=== PATIENT | female | born 1930 | race Caucasian/White ===

== ENCOUNTER 2016-09-30 11:35 | Emergency (ER) | payer MEDICARE ==
[~2016-09-30] VITALS: Ht 167.6 cm; Wt 37.2 kg
[~2016-09-30 11:35] MED LIST: ULTR50TA PO; ZITH250T PO
[2016-09-30 11:40] VITALS: BP 118/60; PULSE 100; RESP 16; TEMP 95; O2SAT 93
[2016-09-30] MEDS ORDERED: LIDOCAINE HCL 1% 50 ML VIAL INFIL ONE (12:30)
--- NOTE | 2016-09-30 12:54 | PD ---
HPI Chief Complaint: Musculoskeletal Complaint Time Seen by Provider: 12:15 Travel History International Travel<30 days: No Contact w/Intl Traveler<30days: No Traveled to known affect area: No History of Present Illness HPI Send 85-year-old woman who presents to the emergency department complaining of left third finger pain and deformity after fall. She also has some skin tears on the left arm. Unclear she had LOC or head her head. History Past Medical History Narrative Medical Dementia Endometrial CA CAD Hyperlipidemia GERD Hiatal hernia Hypertension LMP: [place] Social History Alcohol Use: No Tobacco Use: No Allergies-Medications (Allergen,Severity, Reaction): Coded Allergies: Morphine (Verified Allergy, Mild, DECREASED BLOODPRESSURE, 11/10/15) PT DENIES ANY ALLERGIES Reported Meds & Prescriptions Reported Meds & Active Scripts Active Zithromax Z-Ronni (Azithromycin) 250 Mg Tab 250 Mg PO DIRECTED 500 MG (2 TABLETS) PO ON DAY 1, THEN 250 MG (1 TABLET) PO ON DAYS 2 TO 5. Ultram (Tramadol HCl) 50 Mg Tab 50 Mg PO Q4H PRN Review of Systems Except as stated in HPI: all other systems reviewed are Neg Physical Exam Narrative GENERAL: Well-appearing 84 year-old woman, no acute distress. SKIN: Warm and dry. NECK: Trachea midline. No JVD. CARDIOVASCULAR: Regular rate and rhythm. No murmur appreciated. RESPIRATORY: No accessory muscle use. Clear to auscultation. Breath sounds equal bilaterally. GASTROINTESTINAL: Abdomen soft, non-tender, nondistended. Hepatic and splenic margins not palpable. MUSCULOSKELETAL: Obvious deformity with near 90 angulation laterally of the third finger on the left hand at the PIP joint. There is edema and swelling at the same area. The hands are mottled and pale bilaterally. There is some skin tenting on the AP joint laterally for the dislocation is. She also has multiple skin tears around the left elbow. NEUROLOGICAL: Awake and alert. No obvious cranial nerve deficits. Motor grossly within normal limits. Normal speech. PSYCHIATRIC: Appropriate mood and affect; insight and judgment normal. Data Data Last Documented VS Vital Signs Date Time Temp Pulse Resp B/P Pulse Ox O2 Delivery O2 Flow Rate FiO2 09/30/16 11:40 95.0 100 16 118/60 93 Orders Hand, Complete ([id number]) (09/30/16 ) Lidocaine 1% Inj (50 Ml) (Xylocaine 1% I (09/30/16 12:30) Finger ([id number]) (09/30/16 ) [facility] Medical Decision Making Medical Screen Exam Complete: Yes Emergency Medical Condition: Yes Interpretation(s) My review of left hand x-ray: Lateral dislocation of the left third PIP joint. Don't see any fracture. Differential Diagnosis Skin tear, dislocation, fracture, other Narrative Course Medical decision making INITIAL: 85-year-old woman tripped and fall but not much history from the son. She looks well. I'll see any evidence of head injury. She has a finger to its dislocated may be fractured. There is some skin tenting so we did initial small reduction but would not go easily all the way back in. We'll get x-rays and block the finger and then reattempt complete reduction. She is some skin tears in the left arm the repaired primarily with tissue adhesive and Steri- Strips. Procedures Procedure Narrative Repair skin tears: Multiple skin tears in the left arm were cleansed with sterile gauze and sterile saline. Edges were then reapproximated. Edges were sealed with wound adhesive and Steri-Strips are placed to reinforce the repair. Sterile dressing was then applied. Digital block: Base of the left third finger was prepped with chlorhexidine. Total of 3 ML's of 1% lidocaine was injected into the base of the finger. Good anesthesia resulted. Joint reduction: Lateral dislocation of the left third digit PIP joint. Following digital block, axial traction and direct pressure were used to successfully reduce the digit. Repeat x-ray was obtained. Patient tolerated well. Dorsal splint was applied. Diagnosis Primary Impression: Dislocation, finger closed Qualified Code: S63.259A - Dislocation, finger closed, initial encounter Patient Instructions: General Instructions Additional Instructions: Take Tylenol as needed for pain. Follow-up with her primary doctor in 3-5 days. Wear splint at all times except when bathing. She will likely need to wear the splint for 3-4 weeks. Return to the emergency department for any new or worsening symptoms. Med/Other Pt SpecificInfo: No Change to Meds Disposition: 01 DISCHARGE HOME Condition: Stable Angel Bazan MD Sep 30, 2016 12:54
--- NOTE | 2016-09-30 13:28 | RADHPO ---
EXAM DATE/TIME: 09/30/2016 12:44 [facility] COMPARISON: No previous studies available for comparison. INDICATIONS : Left hand pain after falling. MEDICAL HISTORY : None. SURGICAL HISTORY : None. ENCOUNTER: Initial ACUITY: 1 day PAIN SCORE: 2/10 LOCATION: Left hand FINDINGS: Three view examination of the left hand demonstrates medial dislocation and angulation at the third P IP joint. Acute fracture is not seen. There is degenerative change at the first carpometacarpal joint . The bones are osteopenic. CONCLUSION: Dislocation at the third PIP joint with the middle phalanx directed medially. Zen Kim MD on September 30, 2016 at 13:25 Board Certified Radiologist. This report was verified electronically.
--- NOTE | 2016-09-30 13:47 | RADHPO ---
EXAM DATE/TIME: 09/30/2016 13:16 [facility] COMPARISON: No previous studies available for comparison. INDICATIONS : Post reduction third digit MEDICAL HISTORY : None. SURGICAL HISTORY : None. ENCOUNTER: Initial ACUITY: 1 day PAIN SCORE: 0/10 LOCATION: Left third digit FINDINGS: \There is soft tissue swelling about the PIP J. third digit without obvious displaced fracture. CONCLUSION: Anatomic alignment with soft tissue swelling. Negative for displaced fracture. Kodi Villatoro MD FACR on September 30, 2016 at 13:44 Board Certified Radiologist. This report was verified electronically.
[2016-09-30 13:51] VITALS: BP 115/72
== END 2016-09-30 13:50 | disposition home or self-care (01) ==
LOC: PHEFT 11:35
DX: S63.283A Dislocation of proximal interphalangeal joint of left middle finger, initial encounter (principal); S51.012A Laceration without foreign body of left elbow, initial encounter; I10 Essential (primary) hypertension; X58.XXXA Exposure to other specified factors, initial encounter
CPT/HCPCS: 12001; 26770; 73130; 73140

== ENCOUNTER 2017-06-13 23:15 | Emergency (ER) | payer MEDICARE ==
--- NOTE | 2017-06-13 23:26 | PD ---
HPI Chief Complaint: dementia Time Seen by Provider: 23:18 Travel History International Travel<30 days: No Contact w/Intl Traveler<30days: No History of Present Illness HPI This is an 86-year-old female who presents to the emergency department for her well-being check. Her son who is her primary caregiver was arrested this evening. On his way to half-way he told police that the patient is bedbound and has dementia and he is her primary caregiver. EMS went to check on the patient and found her to be well with normal vital signs in a clean environment with no signs of neglect. The patient has a daughter that lives 2 hours away. She was brought here to the emergency department for safety. She has no medical complaints. 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 Ultram (Tramadol HCl) 50 Mg Tab 50 Mg PO Q4H PRN Review of Systems ROS Limitations: Poor Historian Physical Exam Narrative GENERAL: Confused, elderly female, no acute distress SKIN: Focused skin assessment warm and dry. HEAD: Atraumatic. Normocephalic. EYES: Pupils equal and round. No injection or drainage. ENT: Moist mucous membranes NECK: Trachea midline. CARDIOVASCULAR: Regular rate and rhythm. No murmur appreciated. RESPIRATORY: Clear to auscultation. Breath sounds equal bilaterally. GASTROINTESTINAL: Abdomen soft, non-tender, nondistended. MUSCULOSKELETAL: No obvious deformities. NEUROLOGICAL: Awake and alert. No obvious cranial nerve deficits. Moving all extremities. PSYCHIATRIC: Poor insight and judgment. MDM Medical Decision Making Medical Screen Exam Complete: Yes Emergency Medical Condition: Yes Differential Diagnosis Dementia Narrative Course This is an 86-year-old female who was brought to the emergency department because she had no one to care for her at home. Her daughter is going to come take her. She has no active medical issues. I think the patient can be discharged into family's custody. Diagnosis Primary Impression: Dementia Qualified Codes: F03.90 - Unspecified dementia without behavioral disturbance Med/Other Pt SpecificInfo: No Change to Meds Disposition: 01 DISCHARGE HOME Condition: Stable Cheryl Pereira MD Jun 13, 2017 23:26
[2017-06-13 23:30] VITALS: BP 174/79; PULSE 90; RESP 15; TEMP 97.5; O2SAT 95
[2017-06-14 01:36] VITALS: BP 164/80
== END 2017-06-14 01:50 | disposition home or self-care (01) ==
LOC: PHED 23:15
DX: F03.90 Unspecified dementia, unspecified severity, without behavioral disturbance, psychotic disturbance, mood disturbance, and anxiety (principal); I10 Essential (primary) hypertension; E78.00 Pure hypercholesterolemia, unspecified; Z74.01 Bed confinement status; Z88.5 Allergy status to narcotic agent; Z79.899 Other long term (current) drug therapy
CPT/HCPCS: 99283